=== PATIENT | female | born 1975 | race Two or more races ===

== ENCOUNTER 2018-12-04 16:53 | Observation (INO) | payer MEDICAID, OTHER ==
[~2018-12-04] VITALS: Ht 162.6 cm; Wt 88.5 kg
[2018-12-04] MEDS ORDERED: PREN-96 PO (17:35)
[2018-12-04] MEDS ORDERED: LACTATED RINGER'S 1,000 ML IV ONE (18:00)
[2018-12-04] MEDS: TERBUTALINE SULFATE 1 MG/ML 1ML VIAL SC SCH ×2 (19:39→20:27)
[2018-12-04] MEDS ORDERED: BETAMETHASONE ACET (6MG/ML) 5ML VIAL IM SCH (21:15)
== END 2018-12-04 21:45 | disposition home or self-care (01) | DRG 563 ==
LOC: LDRP 16:53
PROVIDERS: ADMIT Specialist; ATTEND Specialist
DX: O60.03 Preterm labor without delivery, third trimester (principal); O09.523 Supervision of elderly multigravida, third trimester; O26.853 Spotting complicating pregnancy, third trimester; Z3A.32 32 weeks gestation of pregnancy
CPT/HCPCS: 59025; 76815; 81002; 96372; G0378; J0702; J3105; 96361

== ENCOUNTER 2018-12-05 22:06 | Observation (INO) | payer MEDICAID ==
[~2018-12-05] VITALS: Ht 162.6 cm; Wt 88.9 kg
[~2018-12-05 22:06] MED LIST: PREN-96 PO
[2018-12-05] MEDS ORDERED: BETAMETHASONE ACET (6MG/ML) 5ML VIAL IM ONE (22:30)
== END 2018-12-05 23:15 | disposition home or self-care (01) | DRG 563 ==
LOC: LDRP 22:06
PROVIDERS: ADMIT Obstetrics & Gynecology; ATTEND Obstetrics & Gynecology
DX: O60.03 Preterm labor without delivery, third trimester (principal); F17.200 Nicotine dependence, unspecified, uncomplicated; O99.333 Smoking (tobacco) complicating pregnancy, third trimester; O09.523 Supervision of elderly multigravida, third trimester; Z3A.33 33 weeks gestation of pregnancy
CPT/HCPCS: 59025; 81002; 96372; G0378; J0702

== ENCOUNTER 2018-12-08 11:40 | Observation (INO) | payer MEDICAID ==
[2018-12-08] MEDS ORDERED: NIF10C PO (12:16)
== END 2018-12-08 12:35 | disposition home or self-care (01) | DRG 563 ==
LOC: LDRP 11:40
PROVIDERS: ADMIT Specialist; ATTEND Specialist
DX: O60.03 Preterm labor without delivery, third trimester (principal); O09.523 Supervision of elderly multigravida, third trimester; O99.333 Smoking (tobacco) complicating pregnancy, third trimester; F17.200 Nicotine dependence, unspecified, uncomplicated; Z3A.33 33 weeks gestation of pregnancy
CPT/HCPCS: 59025; 81002; G0378

== ENCOUNTER 2018-12-16 19:16 | Observation (INO) | payer MEDICAID ==
[~2018-12-16 19:16] MED LIST changes: +NIF10C PO
== END 2018-12-16 20:20 | disposition home or self-care (01) | DRG 566 ==
LOC: LDRP 19:16
PROVIDERS: ADMIT Specialist; ATTEND Specialist
DX: O26.893 Other specified pregnancy related conditions, third trimester (principal); R10.9 Unspecified abdominal pain; M54.9 Dorsalgia, unspecified; O60.03 Preterm labor without delivery, third trimester; O99.333 Smoking (tobacco) complicating pregnancy, third trimester; F17.210 Nicotine dependence, cigarettes, uncomplicated; Z3A.34 34 weeks gestation of pregnancy; Z91.010 Allergy to peanuts; Z91.018 Allergy to other foods
CPT/HCPCS: 59025; 81002; G0378

== ENCOUNTER 2018-12-23 19:25 | Observation (INO) | payer MEDICAID | END 2018-12-23 20:11 | disposition home or self-care (01) | DRG 566 | LOC: LDRP 19:25 | PROVIDERS: ADMIT Specialist; ATTEND Specialist | DX: O26.893 Other specified pregnancy related conditions, third trimester (principal); O99.333 Smoking (tobacco) complicating pregnancy, third trimester; F17.210 Nicotine dependence, cigarettes, uncomplicated; Z3A.35 35 weeks gestation of pregnancy; Z91.010 Allergy to peanuts; Z91.018 Allergy to other foods | CPT/HCPCS: 59025; 81002; G0378 ==

== ENCOUNTER 2018-12-26 12:40 | Observation (INO) | payer MEDICAID ==
[~2018-12-26] VITALS: Ht 162.6 cm; Wt 81.6 kg
== END 2018-12-26 15:10 | disposition home or self-care (01) | DRG 566 ==
LOC: LDRP 12:40
PROVIDERS: ADMIT Specialist; ATTEND Specialist
DX: O62.9 Abnormality of forces of labor, unspecified (principal); O09.523 Supervision of elderly multigravida, third trimester; O26.893 Other specified pregnancy related conditions, third trimester; N89.8 Other specified noninflammatory disorders of vagina; O99.333 Smoking (tobacco) complicating pregnancy, third trimester; F17.200 Nicotine dependence, unspecified, uncomplicated; Z3A.36 36 weeks gestation of pregnancy
CPT/HCPCS: 59025; 81002; G0378

== ENCOUNTER 2019-01-06 18:41 | Observation (INO) | payer MEDICAID ==
[~2019-01-06] VITALS: Ht 160 cm; Wt 88.0 kg
== END 2019-01-06 20:30 | disposition home or self-care (01) | DRG 566 ==
LOC: LDRP 18:41
PROVIDERS: ADMIT Specialist; ATTEND Specialist
DX: O26.893 Other specified pregnancy related conditions, third trimester (principal); M54.9 Dorsalgia, unspecified; R10.9 Unspecified abdominal pain; Z3A.37 37 weeks gestation of pregnancy; Z87.891 Personal history of nicotine dependence
CPT/HCPCS: 59025; 81002; G0378

== ENCOUNTER 2019-01-18 16:50 | Observation (INO) | payer MEDICAID | END 2019-01-18 19:00 | disposition home or self-care (01) | DRG 566 | LOC: LDRP 16:50 | PROVIDERS: ADMIT Obstetrics & Gynecology; ATTEND Obstetrics & Gynecology | DX: O62.9 Abnormality of forces of labor, unspecified (principal); O26.893 Other specified pregnancy related conditions, third trimester; R11.0 Nausea; Z87.891 Personal history of nicotine dependence; O09.523 Supervision of elderly multigravida, third trimester; Z3A.39 39 weeks gestation of pregnancy | CPT/HCPCS: 59025; 76815; 81002; G0378 ==

== ENCOUNTER 2019-01-19 07:22 | Observation (INO) | payer MEDICAID | END 2019-01-19 08:20 | disposition home or self-care (01) | DRG 566 | LOC: LDRP 07:22 → UNDOADMOB 07:41 → LDRP 07:41 | PROVIDERS: ADMIT Specialist; ATTEND Specialist | DX: O26.853 Spotting complicating pregnancy, third trimester (principal); O09.523 Supervision of elderly multigravida, third trimester; O62.9 Abnormality of forces of labor, unspecified; Z3A.39 39 weeks gestation of pregnancy | CPT/HCPCS: 59025; 81002; G0378 ==

== ENCOUNTER 2019-01-19 20:00 | Observation (INO) | payer MEDICAID ==
[~2019-01-19] VITALS: Ht 162.6 cm; Wt 83.9 kg
== END 2019-01-19 23:06 | disposition home or self-care (01) | DRG 566 ==
LOC: LDRP 20:00
PROVIDERS: ADMIT Specialist; ATTEND Specialist
DX: O26.853 Spotting complicating pregnancy, third trimester (principal); O09.523 Supervision of elderly multigravida, third trimester; O62.9 Abnormality of forces of labor, unspecified; Z3A.39 39 weeks gestation of pregnancy; Z87.891 Personal history of nicotine dependence
CPT/HCPCS: 59025; 76815; 81002; G0378

== ENCOUNTER 2019-01-20 16:50 | Observation (INO) | payer MEDICAID ==
[~2019-01-20 16:50] MED LIST changes: -NIF10C PO
== END 2019-01-20 17:50 | disposition home or self-care (01) | DRG 566 ==
LOC: LDRP 16:50
PROVIDERS: ADMIT Obstetrics & Gynecology; ATTEND Obstetrics & Gynecology
DX: O62.9 Abnormality of forces of labor, unspecified (principal); O09.523 Supervision of elderly multigravida, third trimester; Z3A.39 39 weeks gestation of pregnancy; Z87.891 Personal history of nicotine dependence
CPT/HCPCS: 59025; 81002; G0378

== ENCOUNTER 2019-01-27 17:43 | Inpatient (IN) | payer MEDICAID ==
[~2019-01-27] VITALS: Ht 162.6 cm; Wt 82.2 kg
[2019-01-27] MEDS ORDERED: SODIUM CHLORIDE 0.9% 1,000 ML IV ONE (18:30)
[2019-01-27 18:59] LABS: Basophils # (auto) 0 uL; Basophils % (auto) 0.5 % (0.0-2.0); Eosinophils # (auto) 0.2 uL; Eosinophils % (auto) 2.5 % (0.0-7.0); Hematocrit 34.3 % (36.0-46.0); Hemoglobin 11.7 g/dL (12.2-16.2); Lymphocytes # (auto) 2.8 uL; Lymphocytes % (auto) 31.1 % (10.0-50.0); Mean Corpuscular Volume 91.2 fL (80.0-100.0); Monocytes # (auto) 0.8 uL; Monocytes % (auto) 9.1 % (0.0-12.0); Neutrophils # (auto) 5.2 uL; Neutrophils % (auto) 56.8 % (37.0-80.0); Nucleated Red Blood Cells % 0.1 %; Platelet Count (auto) 189 10^3/uL (140-450); Red Blood Cells 3.76 10^6/uL (4.0-5.20); Red Cell Distribution Width 13.9 % (11.8-14.3); White Blood Cell 9.1 10^3/uL (4.4-10.8)
[2019-01-27 19:18] LABS: INR 1.04 (0.9-1.15); Partial Thromboplastin Time 30.5 sec (23.64-32.05)
[2019-01-27 19:23] LABS: Albumin 3.1 g/dL (3.4-5.0)
[2019-01-27 19:26] LABS: BUN/Creatinine Ratio 25.7; Bilirubin, Total 0.2 mg/dL (0.2-1.0); Total Protein 6.7 g/dL (6.4-8.2)
[2019-01-27] MEDS ORDERED: ATROPINE SULF 1 MG/10ml SYR IV ONE (19:30)
[2019-01-27] MEDS ORDERED: ATROPINE SULFATE 1 MG/1 ML VIAL ONE (19:31)
[2019-01-27] MEDS ORDERED: metroNIDAZOLE 500MG/100ML 100 ML IV ONE (20:15)
[2019-01-27] MEDS ORDERED: ONDANSETRON HCL 4 MG/2 ML VIAL IV ONE (20:15)
[2019-01-27] MEDS ORDERED: cefTRIAXone 1GM/50ML D5W 50 ML IV ONE (20:15)
[2019-01-27] MEDS ORDERED: MORPHINE SULF INJ 2 MG/ML SYRINGE 1ML IV ONE (20:15)
[2019-01-27 20:43] LABS: Urine WBC None Seen /hpf (0 - 5)
[2019-01-27 21:11] LABS: Urine Bacteria NONE SEEN /hpf (None Seen); Urine Blood 1+ /uL (Negative); Urine Specific Gravity 1.006 (1.001-1.035)
[2019-01-27] MEDS ORDERED: HYDROcodone-ACET 5/325MG TAB PO ONE (21:15)
[2019-01-27] MEDS ORDERED: PROMETHAZINE HCL 25 MG/ML 1ML IV ONE (21:15)
[2019-01-28] VITALS (7 sets, daily range): BP systolic 117–137; BP diastolic 56–75
[2019-01-28] MEDS ORDERED: TEMAZEPAM 15 MG CAP PO PRN (00:30)
[2019-01-28] MEDS ORDERED: ONDANSETRON HCL 4 MG/2 ML VIAL IV PRN (00:30)
--- NOTE | 2019-01-28 02:40 | NUR ---
Telemetry admit from RAY[facility] CHAN admitted to Telemetry unit. Patient oriented to Celena Vega, primary RN, unit, room, bed, and unit policies regarding patient care and visiting hours. Patient now on continuous telemetry monitoring, tele box #12 and telemetry reading on arrival to unit is sinus janett heart rate 58. Patient placed on bedside oxygen, weighed by bedscale and encouraged to call if they need something. All questions and concerns addressed, patient verbalized understanding.
[2019-01-28] MEDS: metroNIDAZOLE 500MG/100ML 100 ML IV SCH ×3 (06:05→22:09)
[2019-01-28] MEDS: HYDROcodone-ACET 5/325MG TAB PO PRN ×3 (09:33→22:15)
[2019-01-28] MEDS: cefTRIAXone 1GM/50ML D5W 50 ML IV SCH (09:33)
[2019-01-28] MEDS: FAMOTIDINE 20 MG TAB PO SCH ×2 (09:34→22:09)
--- NOTE | 2019-01-28 11:40 | NUR ---
PT OFF UNIT FOR PROCEDURE
--- NOTE | 2019-01-28 12:35 | NUR ---
ROUNDING MD DEE AT BEDSIDE. PT CURRENTLY DOWN FOR PROCEDURE. UPDATED FAMILY ON POC.
--- NOTE | 2019-01-28 13:30 | NUR ---
PT BACK TO UNIT FROM PROCEDURE
--- NOTE | 2019-01-28 14:18 | NUR ---
MD GRACE DEE AT BEDSIDE. PT UPDATED ON POC.
--- NOTE | 2019-01-28 14:40 | NUR ---
PT OFF UNIT FOR PROCEDURE
--- NOTE | 2019-01-28 16:20 | NUR ---
ROUNDING MD Ronen MARY AT BEDSIDE COMPLETING CARDIOLOGY CONSULT. NO NEW ORDERS
[2019-01-29] MEDS: ACETAMINOPHEN 325 MG TAB PO PRN ×2 (05:10→23:15)
[2019-01-29] MEDS: metroNIDAZOLE 500MG/100ML 100 ML IV SCH ×3 (05:36→22:14)
[2019-01-29 05:46] VITALS: BP 141/73
[2019-01-29 06:12] LABS: Basophils # (auto) 0.1 uL; Basophils % (auto) 0.7 % (0.0-2.0); Eosinophils # (auto) 0.3 uL; Eosinophils % (auto) 3.5 % (0.0-7.0); Hematocrit 33.2 % (36.0-46.0); Hemoglobin 11.5 g/dL (12.2-16.2); Lymphocytes # (auto) 2.3 uL; Lymphocytes % (auto) 28.1 % (10.0-50.0); Mean Corpuscular Hemoglobin 31.6 pg (28.0-32.0); Mean Corpuscular Hgb Conc. 34.8 g/dL (32.0-36.0); Mean Corpuscular Volume 90.9 fL (80.0-100.0); Monocytes # (auto) 0.7 uL; Monocytes % (auto) 8.3 % (0.0-12.0); Neutrophils % (auto) 59.4 % (37.0-80.0); Nucleated Red Blood Cells % 0.1 %; Platelet Count (auto) 189 10^3/uL (140-450); Red Blood Cells 3.65 10^6/uL (4.0-5.20); Red Cell Distribution Width 13.9 % (11.8-14.3); White Blood Cell 8.3 10^3/uL (4.4-10.8)
[2019-01-29 06:28] LABS: Potassium 3.6 mmol/L (3.5-5.1)
[2019-01-29 06:38] LABS: Albumin 2.7 g/dL (3.4-5.0); BUN/Creatinine Ratio 18.9; Bilirubin, Total 0.3 mg/dL (0.2-1.0); Calcium 8.3 mg/dL (8.5-10.1); Total Protein 5.8 g/dL (6.4-8.2)
[2019-01-29 09:00] VITALS: BP 148/71
[2019-01-29] MEDS: cefTRIAXone 1GM/50ML D5W 50 ML IV SCH (09:29)
[2019-01-29] MEDS: FAMOTIDINE 20 MG TAB PO SCH (09:29)
[2019-01-29] MEDS ORDERED: IBUPROFEN 600 MG TAB PO PRN (11:45)
--- NOTE | 2019-01-29 12:55 | NUR ---
pt seen by Dr. Torres pt scheduled for EGD tomorrow, pt is aware.
[2019-01-29 13:00] VITALS: BP 153/80
[2019-01-29] MEDS: SUCRALFATE 1 GM/10 ML ORAL SUSP PO SCH ×3 (13:00→22:14)
[2019-01-29] MEDS: PANTOPRAZOLE 40 MG TAB PO SCH ×2 (13:17→22:14)
--- NOTE | 2019-01-29 13:48 | NUR ---
PT SEEN BY DR. LUA NO FURTHER INTERVENTION, PER DR. LUA ABDOMINAL PAIN IS NOT RELATED OBGYN. Addendum: 01/29/19 at 1355 by Nicci Rousseau RN DR. LUA ORDERED TO ADALBERTO CARMICHAEL
--- NOTE | 2019-01-29 14:25 | NUR ---
PT SEEN BY DR. DYER PT MADE AWARE OF THE TEST RESULTS NEGATIVE, NO INTERVENTION AT THIS TIME.
--- NOTE | 2019-01-29 15:18 | NUR ---
PT SEEN BY DR. MARY PT WILL BE SCHEDULED FOR PACEMAKER PLACEMENT TOMORROW AT 8:00AM, PER DR. MARY HE WILL PUT THE PACEMAKER FIRST BEFORE EGD, DR. CALERO MADE AWARE, HE SAID HE WILL SCHEDULE PT FOR EGD NEXT WEEK.
[2019-01-29 17:00] VITALS: BP 153/82
--- NOTE | 2019-01-29 18:15 | NUR ---
PT STATED SHE HAS SOME QUESTIONS REGARDING PACEMAKER INSERTION AND WILL SIGN THE CONSENT TOMORROW BEFORE THE PROCEDURE.
--- NOTE | 2019-01-29 19:00 | NUR ---
Opening Shift Note Assumed care of patient, awake and alert. No S/S of distress/SOB or pain. Family is at the bedside. Safety measures in place side rails x2 up, bed in lowest position, call light within reach. Instructed on POC and to call for assist PRN, will continue to monitor for changes Q1hr and PRN.
[2019-01-29 21:00] VITALS: BP 141/76
--- NOTE | 2019-01-29 23:33 | NUR ---
IV removal IV DC'd with sterile technique, catheter fully intact. Pressure dressing applied to site. Patient tolerated procedure well.
--- NOTE | 2019-01-29 23:45 | NUR ---
IV insertion IV access obtained, via clean sterile technique by inserting 20 gauge catheter at right forearm with one attempt. IV secured properly. No trauma to site. Patient tolerated procedure well.
--- NOTE | 2019-01-29 23:50 | NUR ---
Patient is in an emotional state and questioning if she needs to have a pacemaker placed. Explained to the patient that her low heart rate is a concern and the doctor's recommendation is a pacemaker to improve her quality of life. Will continue to monitor.
[2019-01-30] MEDS: HYDROcodone-ACET 5/325MG TAB PO PRN ×3 (01:40→22:30)
--- NOTE | 2019-01-30 03:46 | NUR ---
Patient headache has returned. Patient stating she feels nauseas. Patient is anxious about upcoming surgical procedure. Checked patient's BP 195/97 HR 50. Instructed patient to take deep breaths. We utilized therapeutic measures to help with her anxiety such as prayer and listening to confucianist music. Reassessed blood pressure 190/87 HR 51. Will continue to monitor.
[2019-01-30 05:00] VITALS: BP 190/87
--- NOTE | 2019-01-30 05:15 | NUR ---
Patient BP 190/87. Patient states her headache is receding. Will monitor.
--- NOTE | 2019-01-30 05:40 | NUR ---
Patient ambulated up and down the halls for 25 minutes. Returned to the room her BP is currently 188/91 and HR 45. Patient does not have any blood pressure medication. Will page the hospitalist. Will continue to monitor. Signed: 01/30/19 at 0550 by ALYSSA JARA RN RN
[2019-01-30] MEDS: metroNIDAZOLE 500MG/100ML 100 ML IV SCH (06:03)
[2019-01-30] MEDS ORDERED: cloNIDine HCL 0.1 MG TAB PO PRN (06:45)
[2019-01-30] MEDS: SUCRALFATE 1 GM/10 ML ORAL SUSP PO SCH ×4 (07:00→22:01)
[2019-01-30 07:50] VITALS: BP 190/104
--- NOTE | 2019-01-30 07:50 | NUR ---
PT TRANSPORTED TO [facility]IA [facility]ED , PT IS AWAKE AND ALERT, IV ON RIGHT FOREARM PATENT AND FLUSHING. PRE-OP CHECKLIST COMPLETED, PT STILL TO SIGN CONSENTS, PT HAS SOME QUESTIONS REGARDING PROCEDURE, BP 190/104MMHG GIVEN CLONIDINE AT 0708, [facility] NURSE MADE AWARE.
[2019-01-30] MEDS ORDERED: LIDOCAINE 2%HCL (LOCAL ANESTH.) INJ 20ML MDV ONE ×2 (08:53→09:01)
[2019-01-30 09:00] VITALS: BP 190/104
[2019-01-30] MEDS: cefTRIAXone 1GM/50ML D5W 50 ML IV SCH (09:00)
--- NOTE | 2019-01-30 09:00 | NUR ---
PT IS STILL AT ELECTROLYTIC ETCHER, WILL GIVE SCHEDULED MEDICATION ONCE PT IS BACK.
[2019-01-30] MEDS ORDERED: ceFAZolin 1GM/50ML 50 ML IV ONE (09:01)
[2019-01-30] MEDS ORDERED: VANCOMYCIN HCL 1000 MG VL ONE (09:01)
[2019-01-30] MEDS ORDERED: VANCOMYCIN 1GM/250ML 250 ML IV ONE (09:01)
[2019-01-30] MEDS ORDERED: fentaNYL CITRATE 100 MCG/2 ML VL ONE ×2 (09:01→09:32)
[2019-01-30] MEDS ORDERED: MIDAZOLAM HCL 1MG/1ML-2 ML VIAL ONE (09:01)
[2019-01-30] MEDS ORDERED: FUROSEMIDE 20 MG/2 ML VIAL ONE (09:59)
[2019-01-30] MEDS: PANTOPRAZOLE 40 MG TAB PO SCH ×2 (10:00→22:00)
[2019-01-30] MEDS: LORazepam 2MG/ML-1ML VIAL ONE ×2 (11:33→11:56)
[2019-01-30] MEDS ORDERED: LEVETIRACETAM INJ 500 MG in D5W 5% 100 ML IV ONE (11:45)
[2019-01-30] MEDS ORDERED: LORazepam 2MG/ML-1ML VIAL IV ONE ×2 (11:45→12:00)
--- NOTE | 2019-01-30 11:45 | NUR ---
REPORT RECEIVED Report received from Estefani PATEL micro lab analyst.
--- NOTE | 2019-01-30 11:48 | NUR ---
[facility] CALLED, PT WILL BE UPGRADED TO [facility] AND TO CALL REPORT TO JORGE ESPARZA
--- NOTE | 2019-01-30 11:49 | NUR ---
REPORT CALLED TO JORGE ESPARZA IN [facility]. Addendum: 01/30/19 at 1207 by Nicci Rousseau RN ALL BELONGINGS TRANSFERRED TO FAMILY [facility] MADE AWARE.
--- NOTE | 2019-01-30 11:50 | NUR ---
PATIENT TRANSFERRED Patient brought into [facility] with ICU charge, Flaco, and warehouse supervisor 3rd shift, Batool, with portable monitor. Patient in and out of sleep/wake. Patient connected to [facility] monitor, stable at this time.
--- NOTE | 2019-01-30 11:50 | NUR ---
REPORT RECEIVED Received report from Nicci PATEL [facility].
[2019-01-30 12:00] VITALS: BP 138/75
[2019-01-30] MEDS ORDERED: LORazepam 2MG/ML-1ML VIAL IV PRN (12:15)
--- NOTE | 2019-01-30 12:45 | NUR ---
UPDATED Updated , Shyam, on patients status over the phone.
--- NOTE | 2019-01-30 12:50 | NUR ---
BEDSIDE Dr. Tomlin bedside.
--- NOTE | 2019-01-30 12:55 | NUR ---
NUTRITION ASSESSMENT NOTES Please refer to link notes of nutrition screen form filed under the intervention section of the plan of care for further details. Est. Needs: 1650 kcal to 2050 kcal (20-25 kcal/kgBW), 66 gms to 82 gms pro (0.8-1.0 gms/kgBW). Will continue to monitor pertinent labs and reassess nutrient need prn Thank you. Addendum: 01/30/19 at [address] Amended: Links added.
--- NOTE | 2019-01-30 13:14 | NUR ---
EEG TECHS BEDSIDE EEG techs at the bedside to complete EEG at this time.
--- NOTE | 2019-01-30 14:05 | NUR ---
FAMILY BEDSIDE Patients son Shyam, bedside, updated on patients status and plan of care.
[2019-01-30 14:20] LABS: Albumin 3.3 g/dL (3.4-5.0); BUN/Creatinine Ratio 11.3; Calcium 8.8 mg/dL (8.5-10.1); Magnesium 1.8 mg/dL (1.6-2.6); Potassium 3.4 mmol/L (3.5-5.1)
[2019-01-30 14:22] LABS: Bilirubin, Total 0.6 mg/dL (0.2-1.0)
[2019-01-30] MEDS ORDERED: METOPROLOL SUCCINATE XL 50 MG TAB PO ONE (14:45)
[2019-01-30] MEDS ORDERED: POTASSIUM CHL 20 Meq TABLET PO ONE (14:45)
--- NOTE | 2019-01-30 15:00 | NUR ---
INTERROGATING PACEMAKER Pacemaker interrogation in process.
--- NOTE | 2019-01-30 15:25 | NUR ---
SWALLOWING Patient given ice chips to assess swallow, tolerated well. Given water with ordered medication and tolerated well.
--- NOTE | 2019-01-30 15:40 | NUR ---
BEDSIDE Dr. Gordon bedside. No new orders received.
--- NOTE | 2019-01-30 17:00 | NUR ---
ELEVATED BLOOD PRESSURE Monitoring blood pressure. Giving medication as ordered.
[2019-01-30 17:01] VITALS: BP 155/77
--- NOTE | 2019-01-30 18:27 | NUR ---
FAMILY BEDSIDE Son Shyam seals.
--- NOTE | 2019-01-30 18:50 | NUR ---
SPOKE WITH MD Spoke to Dr. Lopez. New orders received.
--- NOTE | 2019-01-30 19:00 | NUR ---
opening note assumed care of patient at this time. Report received from day shift rn. POC reviewed. Head to toe assessment complete, see intervention spreadsheet for complete details. Received pt AxOx4. Received pt s/p pacemaker placement for symptomatic bradycardia. VSS at this time. IV sites benign. Call light within reach. Bed locked and in lowest position, safety precautions in place. Will monitor pt carefully.
--- NOTE | 2019-01-30 19:27 | NUR ---
CLOSING Report given to Ely PATEL.
[2019-01-30 19:46] VITALS: BP 143/80
--- NOTE | 2019-01-30 20:05 | NUR ---
dr rivero at bedside
[2019-01-30 20:17] LABS: Urine Bacteria NONE SEEN /hpf (None Seen); Urine Blood TRACE /uL (Negative); Urine Mucus FEW (None Seen); Urine Specific Gravity 1.007 (1.001-1.035); Urine WBC <1 /hpf (0 - 5)
[2019-01-30 20:21] LABS: Basophils # (auto) 0 uL; Basophils % (auto) 0.3 % (0.0-2.0); Eosinophils # (auto) 0.1 uL; Eosinophils % (auto) 1.1 % (0.0-7.0); Hematocrit 38.3 % (36.0-46.0); Mean Corpuscular Hemoglobin 30.7 pg (28.0-32.0); Mean Corpuscular Volume 90.3 fL (80.0-100.0); Monocytes % (auto) 9.9 % (0.0-12.0); Neutrophils # (auto) 7.3 uL; Neutrophils % (auto) 69.7 % (37.0-80.0); Nucleated Red Blood Cells % 0.1 %; Platelet Count (auto) 211 10^3/uL (140-450); Red Blood Cells 4.24 10^6/uL (4.0-5.20); Red Cell Distribution Width 13.9 % (11.8-14.3); White Blood Cell 10.5 10^3/uL (4.4-10.8)
[2019-01-30 20:27] LABS: Albumin 3.1 g/dL (3.4-5.0); BUN/Creatinine Ratio 12.9; Calcium 8.5 mg/dL (8.5-10.1); Potassium 3.5 mmol/L (3.5-5.1); Uric Acid 7.9 mg/dL (2.6-6.0)
[2019-01-30 20:30] LABS: Bilirubin, Total 0.6 mg/dL (0.2-1.0); Total Protein 6.6 g/dL (6.4-8.2)
[2019-01-30 20:47] LABS: Alcohol, Urine < 3.0 mg/dL (0-5); Amphetamine Screen, Urine NEGATIVE (NEGATIVE); Barbiturate Scree,Urine NEGATIVE (NEGATIVE); Benzodiazephine Screen, Urine POSITIVE (NEGATIVE); Cannabinoid Screen, Urine NEGATIVE (NEGATIVE); Cocaine Screen, Urine NEGATIVE (NEGATIVE); Phencyclidine Screen, Urine NEGATIVE (NEGATIVE)
[2019-01-30 20:55] LABS: Opiate Scree,Urine NEGATIVE (NEGATIVE)
[2019-01-30] MEDS ORDERED: VANCOMYCIN 1GM/250ML 250 ML IV SCH (22:00)
[2019-01-30] MEDS ORDERED: LEVETIRACETAM 500 MG TAB PO SCH (22:00)
--- NOTE | 2019-01-30 22:27 | NUR ---
Maryan care provided for patient. PT has small amount of lochia discharge from vaginal area. Pt cleaned and repositioned. Full linen change and oral care provided. Pt tolerated fair. PT complaining of pain in left arm.
--- NOTE | 2019-01-30 22:28 | NUR ---
Pain assessment PT complaining of pain 10/10 in left arm when turning to clean and reposition. Pt given pain medication as ordered. See emar for reassessment.
[2019-01-31] VITALS: BP 145/77
[2019-01-31 03:56] VITALS: BP 145/74
--- NOTE | 2019-01-31 05:51 | NUR ---
ekg complete placed in pt chart
[2019-01-31] MEDS: SUCRALFATE 1 GM/10 ML ORAL SUSP PO SCH ×2 (06:52→12:36)
--- NOTE | 2019-01-31 07:03 | NUR ---
Dr Lopez at bedside. No new orders received at this time
[2019-01-31 08:00] VITALS: BP 142/76
--- NOTE | 2019-01-31 08:00 | NUR ---
Opening Shift Note Assumed care of patient, awake and alert. Patient A&Ox4. Patient Persian speaking only. IV right forearm 20G saline locked and left hand 22G saline locked, both IV's patent, clean, dry, and intact. Patient NPO except for meds. Patient on the monitor. Patient on 2L NC saturation at 95%. No S/S of distress/SOB or pain. Instructed on POC and to call for assist. Bed locked and in the lowest position, side rails up x2, call light with in reach. Will continue to monitor.
[2019-01-31] MEDS: PANTOPRAZOLE 40 MG TAB PO SCH (09:55)
[2019-01-31] MEDS ORDERED: METOPROLOL SUCCINATE XL 50 MG TAB PO SCH (10:00)
--- NOTE | 2019-01-31 10:00 | NUR ---
Medication dosages, usages, and side effects explained to patient. Patient verbalized understanding. Will continue to monitor.
--- NOTE | 2019-01-31 11:45 | NUR ---
Dr. Mark at bedside.
[2019-01-31 12:00] VITALS: BP 122/65
--- NOTE | 2019-01-31 12:30 | NUR ---
Patient sitting up in bed eating lunch independently. Will continue to monitor.
--- NOTE | 2019-01-31 13:30 | NUR ---
Patient has not urinated since early last night. Used bladder scanner it indicates 518ml of urine in the bladder. Encouraged patient to use bedside commode. Patient output 500ml of dark elaine urine with small amount of blood mixed. Patient just had vaginal about a week ago. Will continue to monitor.
--- NOTE | 2019-01-31 14:00 | NUR ---
Spoke with Dr. Lucero. Patient Ok to D/C no medications, follow up in 1-2 weeks. Patient unable to drive until further notice.
[2019-01-31 15:50] VITALS: BP 110/68
--- NOTE | 2019-01-31 16:30 | NUR ---
Patient discharged. Right forearm 20G and left hand 22G removed, catheter intact upon removal, pressure dressing placed. D/C paperwork explained and given to patient's Spouse along with prescription. Patient and Spouse verbalized understanding. Patient taken out via Wheel chair by Jamison MATOS. No S/S of pain/SOB or distress upon discharge. All belongings taken with the patient.
== END 2019-01-31 16:30 | disposition home or self-care (01) | DRG 171 ==
LOC: ER 17:43 → OVERFLOW 17:44 → TELE 01-28 01:11 → TELE-EAST 01-28 02:47 → ICU CENTRL 01-30 12:10 → DOU IN ICU 01-30 13:29
PROVIDERS: ADMIT Nurse Practitioner; ATTEND Internal Medicine Pulmonary Disease
PROC: 0JH606Z Insertion of Pacemaker, Dual Chamber into Chest Subcutaneous Tissue and Fascia, Open Approach (ICD-10-PCS; principal; 2019-01-30)
PROC: 02H63JZ Insertion of Pacemaker Lead into Right Atrium, Percutaneous Approach (ICD-10-PCS; 2019-01-30)
PROC: 02HK3JZ Insertion of Pacemaker Lead into Right Ventricle, Percutaneous Approach (ICD-10-PCS; 2019-01-30)
DX: R00.1 Bradycardia, unspecified (principal); R65.10 Systemic inflammatory response syndrome (SIRS) of non-infectious origin without acute organ dysfunction; G40.409 Other generalized epilepsy and epileptic syndromes, not intractable, without status epilepticus; K76.0 Fatty (change of) liver, not elsewhere classified; R16.0 Hepatomegaly, not elsewhere classified; E44.1 Mild protein-calorie malnutrition; K29.00 Acute gastritis without bleeding; I44.2 Atrioventricular block, complete; R10.9 Unspecified abdominal pain; J45.909 Unspecified asthma, uncomplicated; D64.9 Anemia, unspecified; E87.6 Hypokalemia; Z91.010 Allergy to peanuts; Z91.018 Allergy to other foods; F17.200 Nicotine dependence, unspecified, uncomplicated; N85.2 Hypertrophy of uterus; N94.89 Other specified conditions associated with female genital organs and menstrual cycle; Z79.899 Other long term (current) drug therapy; Z82.3 Family history of stroke; Z83.3 Family history of diabetes mellitus
CPT/HCPCS: 33208; 36415; 70450; 71045; 74176; 76705; 78226; 80053; 80307; 81001; 82150; 83605; 83690; 83735; 84443; 84550; 84702; 85025; 85610; 85730; 86850; 86900; 86901; 87040; 87081; 87086; 93005; 93306; 94761; 95819; 96361; 96365; 96367; 96375; 99152; C1785; G0378; J0461; J0690; J0696; J2250; J2405; J3490; J7060

== ENCOUNTER → 2019-05-21 | Outpatient (CLI) | payer MEDICAID | END | disposition home or self-care (01) | LOC: Rad HDHVI 10:14 | PROVIDERS: ATTEND Internal Medicine Cardiovascular Disease | DX: R07.9 Chest pain, unspecified (principal); R06.02 Shortness of breath; R00.2 Palpitations | CPT/HCPCS: 93306 ==

== ENCOUNTER → 2019-05-25 | Outpatient (CLI) | payer MEDICAID | END | disposition home or self-care (01) | LOC: Rad HDHVI 09:23 | PROVIDERS: ATTEND Internal Medicine Cardiovascular Disease | DX: R42 Dizziness and giddiness (principal); R00.2 Palpitations | CPT/HCPCS: 93880 ==

== ENCOUNTER → 2019-05-26 | Outpatient (CLI) | payer MEDICAID ==
[~2019-05-26] VITALS: Ht 162.6 cm; Wt 82.6 kg
== END | disposition home or self-care (01) ==
LOC: Rad HDHVI 13:14
PROVIDERS: ATTEND Internal Medicine Cardiovascular Disease
DX: R06.02 Shortness of breath (principal); R42 Dizziness and giddiness; I10 Essential (primary) hypertension; Z95.0 Presence of cardiac pacemaker
CPT/HCPCS: 78452; 93017; 96374; A9500

== ENCOUNTER → 2022-02-08 | Outpatient (CLI) | payer MEDICAID, OTHER | END | disposition home or self-care (01) | LOC: Rad HDHVI 16:07 | PROVIDERS: ATTEND Internal Medicine Cardiovascular Disease | DX: R00.0 Tachycardia, unspecified (principal); R00.2 Palpitations | CPT/HCPCS: 93306 ==

== ENCOUNTER → 2022-02-14 | Outpatient (CLI) | payer MEDICAID, OTHER ==
[~2022-02-14] VITALS: Ht 160 cm; Wt 81.6 kg
== END | disposition home or self-care (01) ==
LOC: Rad HDHVI 08:31
PROVIDERS: ATTEND Internal Medicine Cardiovascular Disease
DX: R07.89 Other chest pain (principal); R06.02 Shortness of breath; R00.2 Palpitations; I49.5 Sick sinus syndrome; I10 Essential (primary) hypertension; I82.409 Acute embolism and thrombosis of unspecified deep veins of unspecified lower extremity; Z95.0 Presence of cardiac pacemaker
CPT/HCPCS: 78452; 93017; 96374; A9500

== ENCOUNTER → 2022-02-19 | Outpatient (CLI) | payer MEDICAID, OTHER | END | disposition home or self-care (01) | LOC: Rad HDHVI 16:10 | PROVIDERS: ATTEND Internal Medicine Cardiovascular Disease | DX: I10 Essential (primary) hypertension (principal); R07.89 Other chest pain | CPT/HCPCS: 93970 ==

== ENCOUNTER 2022-08-11 15:14 | Emergency (ER) | payer MEDICAID ==
[~2022-08-11] VITALS: Ht 162.6 cm; Wt 78.8 kg
[2022-08-11] MEDS ORDERED: AZIT500T66 PO (17:20)
[2022-08-11] MEDS ORDERED: LIDO2SOL23 MT (17:20)
[2022-08-11 17:26] VITALS: BP 139/87
== END 2022-08-11 17:29 | disposition home or self-care (01) ==
LOC: ER 15:14
DX: J02.9 Acute pharyngitis, unspecified (principal); J45.909 Unspecified asthma, uncomplicated; Z91.010 Allergy to peanuts; Z91.018 Allergy to other foods

== ENCOUNTER → 2024-07-30 | Outpatient (CLI) | payer MEDICAID ==
[~2024-07-30] MED LIST changes: +AZIT500T66 PO; +LIDO2SOL26 MT; -PREN-96 PO
--- NOTE | 2024-07-31 09:02 | DVHSR ---
APPROVED REPORT EXAM: LIMITED Two-dimensional and M-mode echocardiogram with Doppler and color Doppler. DIMENSIONS LVDd4.8 (3.8-5.7cm)LA (2D)3.8 (1.9-4.0cm)Aortic Root3.0 (2.0-3.7cm) LVDs3.4 (2.5-4.0cm)LA (MM) (1.9-4.0cm)Aortic Cusp Exc2.0 (1.5-2.0cm) EF (%) 57.0 (55-70%)Rt. Atrium3.8 (1.9-4.0cm)Asc. Aorta cm IVSd1.0 (0.7-1.1cm)RV (D) (1.8-2.4cm) PWd1.0 (0.7-1.1cm) Mitral Valve MitralMitral Stenosis E wave0.80m/sMV Mean GR.mmHg A wave0.70m/sMV Peak GR.mmHg E/A ratio1.12D MVAcm2 Aortic Valve Aortic ValveAortic Stenosis V10.60m/Marie Mean GR.2mmHg V20.90m/Marie Peak GR.3mmHg LVOT Diameter2.3 (1.8-2.4cm)Doppler AVA2.77cm2 Pulmonic Valve V20.70m/s LEFT VENTRICLE The left ventricle is normal size. The left ventricle is normal in structure and function. The Ejection Fraction is within normal limits. RIGHT VENTRICLE The right ventricle is normal size. ATRIA The left atrial size is normal. The right atrium size is normal. The interatrial septum is intact with no evidence for an atrial septal defect. MITRAL VALVE The mitral valve is normal in structure and function. There is no mitral valve regurgitation noted. PULMONIC VALVE The pulmonic valve is not well visualized. TRICUSPID VALVE The tricuspid valve is grossly normal. AORTIC VALVE The aortic valve opens well. No aortic regurgitation is present. GREAT VESSELS The aortic root is normal size. PERICARDIAL EFFUSION There is no pericardial effusion. Other Information Quality : Technically LimitedRhythm : Technically limited study due to body habitus. Conclusion EF >55%
== END | disposition home or self-care (01) ==
LOC: Rad HDHVI 16:09
PROVIDERS: ATTEND Internal Medicine Cardiovascular Disease
DX: I10 Essential (primary) hypertension (principal); R07.89 Other chest pain
CPT/HCPCS: 93306